=== PATIENT | female | born 1985 | race Caucasian/White ===

== ENCOUNTER 2018-04-02 13:17 | Inpatient (IN) | payer OTHER ==
[~2018-04-02] VITALS: Ht 170.2 cm; Wt 79.4 kg
[2018-04-02] MEDS ORDERED: SODIUM CHLORIDE 0.9% 1,000 ML IVB ONE (14:09)
[2018-04-02] MEDS ORDERED: PROMETHAZINE HCL 25 MG/ML 1ML IV PRN ×2 (14:15→17:15)
[2018-04-02] MEDS ORDERED: HYDROmorphone HCL 2 MG/ML VL IV ONE (14:15)
[2018-04-02] MEDS ORDERED: IOHEXOL 300 MG/ML 100ML BOTTLE IJ ONE (14:17)
[2018-04-02] MEDS ORDERED: cefTRIAXone 1GM/10ml IVPUSH 10 ML IV ONE (15:00)
[2018-04-02] MEDS ORDERED: metroNIDAZOLE 500MG/100ML 100 ML IV ONE (15:00)
[2018-04-02 15:08] LABS: Basophils # (auto) 0 uL; Basophils % (auto) 0.2 % (0.0-2.0); Eosinophils # (auto) 0 uL; Eosinophils % (auto) 0.1 % (0.0-7.0); Lymphocytes # (auto) 0.6 uL; Lymphocytes % (auto) 3.9 % (10.0-50.0); Monocytes # (auto) 0.8 uL; Neutrophils # (auto) 13.6 uL; Red Cell Distribution Width 17.2 % (11.8-14.3)
[2018-04-02 15:10] LABS: Hematocrit 35.2 % (36.0-46.0); Hemoglobin 11.2 g/dL (12.2-16.2); Mean Corpuscular Hemoglobin 23.3 pg (28.0-32.0); Mean Corpuscular Hgb Conc. 31.9 g/dL (32.0-36.0); Monocytes % (auto) 5.3 % (0.0-12.0); Neutrophils % (auto) 90.5 % (37.0-80.0); Platelet Count (auto) 355 10^3/uL (140-450); Red Blood Cells 4.82 10^6/uL (4.0-5.20)
[2018-04-02 15:26] LABS: Potassium 3.4 mmol/L (3.5-5.1)
[2018-04-02 15:55] LABS: Magnesium 1.7 mg/dL (1.6-2.6)
[2018-04-02 16:02] LABS: BUN/Creatinine Ratio 18.9; Bilirubin, Total 0.3 mg/dL (0.2-1.0); Calcium 7.9 mg/dL (8.5-10.1); Total Protein 7.6 g/dL (6.4-8.2)
[2018-04-02] MEDS: SODIUM CHLORIDE 0.9% 1,000 ML IV SCH (17:01)
[2018-04-02] MEDS ORDERED: HYDROmorphone HCL 2 MG/ML VL IV PRN ×2 (17:15)
[2018-04-02] MEDS ORDERED: LABETALOL HCL 5 MG/ML 4ML SYRINGE IV PRN (17:15)
[2018-04-02] MEDS ORDERED: ePHEDrine SULFATE 50 MG/ML AMP IV PRN (17:15)
[2018-04-02] MEDS ORDERED: MIDAZOLAM HCL 1MG/1ML-2 ML VIAL IV PRN (17:15)
[2018-04-02] MEDS ORDERED: NITROGLYCERIN 0.4 MG SL TAB SL PRN (17:15)
[2018-04-02] MEDS ORDERED: KETOROLAC TROMETH 30 MG/ML 1ML VIAL IV ONE (17:15)
[2018-04-02] MEDS ORDERED: LORazepam 2MG/ML-1ML VIAL IV PRN (17:15)
[2018-04-02] MEDS ORDERED: MORPHINE SULFATE 10 MG/ML INJ 1ML SDV IV PRN ×4 (17:15)
[2018-04-02] MEDS ORDERED: MORPHINE SULFATE 8mg/ml INJ SDV IV PRN ×4 (17:15)
[2018-04-02] MEDS ORDERED: ONDANSETRON HCL 4 MG/2 ML VIAL IV ONE (17:15)
[2018-04-02 17:18] LABS: INR 1.03 (0.9-1.15); Partial Thromboplastin Time 25.1 sec (23.78-33.04)
[2018-04-02] MEDS ORDERED: MIDAZOLAM HCL 1MG/1ML-2 ML VIAL ONE (17:54)
[2018-04-02] MEDS ORDERED: MEPERIDINE HCL (50 MG/ML) 1 ML VIAL ONE (17:54)
[2018-04-02] MEDS ORDERED: fentaNYL CITRATE 100 MCG/2 ML VL ONE (17:55)
[2018-04-02] MEDS ORDERED: MORPHINE SULFATE 10 MG/ML INJ 1ML SDV IV ONE (18:00)
[2018-04-02] MEDS ORDERED: ceFAZolin 1GM/100ML 100 ML IV ONE (18:08)
[2018-04-02] MEDS ORDERED: PROPOFOL 10 MG/ML 20 ML IV ONE (18:16)
[2018-04-02] MEDS ORDERED: DEXAMETHASONE SOD PHOS 10MG/1ML VIAL INJ ONE (18:16)
[2018-04-02] MEDS ORDERED: ROCURONIUM 10MG/ML 10ML VIAL IV ONE (18:17)
[2018-04-02] MEDS ORDERED: KETOROLAC TROMETH 30 MG/ML 1ML VIAL ONE (18:42)
[2018-04-02] MEDS ORDERED: GLYCOPYRROLATE 0.2 MG/ML 1ML VIAL ONE (18:42)
[2018-04-02] MEDS ORDERED: NEOSTIGMINE 1 MG/ML INJ (10mg/10ML VIAL) ONE (18:42)
[2018-04-02 20:20] VITALS: BP 116/71
[2018-04-02] MEDS: metroNIDAZOLE 500MG/100ML 100 ML IV SCH ×2 (20:33→23:48)
[2018-04-02 22:00] VITALS: BP 111/71
[2018-04-02] MEDS ORDERED: ONDANSETRON HCL 4 MG/2 ML VIAL IV PRN (22:45)
[2018-04-03 00:09] VITALS: BP 111/71
[2018-04-03] MEDS: SODIUM CHLORIDE 0.9% 1,000 ML IV SCH ×2 (03:01→13:01)
[2018-04-03 05:00] VITALS: BP 98/59
[2018-04-03] MEDS: metroNIDAZOLE 500MG/100ML 100 ML IV SCH ×2 (05:39→12:07)
[2018-04-03 07:33] LABS: Albumin 2.6 g/dL (3.4-5.0); BUN/Creatinine Ratio 14.7; Calcium 8.3 mg/dL (8.5-10.1)
[2018-04-03 07:36] LABS: Bilirubin, Total 0.4 mg/dL (0.2-1.0); Total Protein 7.3 g/dL (6.4-8.2)
[2018-04-03 07:40] LABS: Basophils # (auto) 0 uL; Basophils % (auto) 0.1 % (0.0-2.0); Eosinophils # (auto) 0 uL; Mean Corpuscular Hgb Conc. 31.6 g/dL (32.0-36.0); Monocytes # (auto) 0.2 uL
[2018-04-03 07:44] LABS: Hematocrit 33.3 % (36.0-46.0); Hemoglobin 10.5 g/dL (12.2-16.2); Lymphocytes # (auto) 0.9 uL; Lymphocytes % (auto) 8.4 % (10.0-50.0); Mean Corpuscular Hemoglobin 23.2 pg (28.0-32.0); Mean Corpuscular Volume 73.4 fL (80.0-100.0); Monocytes % (auto) 1.9 % (0.0-12.0); Neutrophils # (auto) 9.7 uL; Neutrophils % (auto) 89.6 % (37.0-80.0); Platelet Count (auto) 367 10^3/uL (140-450); Red Blood Cells 4.53 10^6/uL (4.0-5.20); Red Cell Distribution Width 17.6 % (11.8-14.3); White Blood Cell 10.9 10^3/uL (4.4-10.8)
[2018-04-03 09:00] VITALS: BP 102/55
[2018-04-03] MEDS ORDERED: cefTRIAXone 1GM/10ml IVPUSH 10 ML IV SCH (09:00)
[2018-04-03 12:23] VITALS: BP 111/59
== END 2018-04-03 16:15 | disposition home or self-care (01) | DRG 854 ==
LOC: ER 13:17 → OR 1 18:57 → TELE 19:51 → TELE-EAST 19:56
PROVIDERS: ADMIT Internal Medicine; ATTEND Family Medicine
PROC: 0DTJ4ZZ Resection of Appendix, Percutaneous Endoscopic Approach (ICD-10-PCS; principal; 2018-04-02 18:14)
DX: A41.9 Sepsis, unspecified organism (principal); K35.80 Unspecified acute appendicitis; E44.0 Moderate protein-calorie malnutrition; E87.6 Hypokalemia; K66.0 Peritoneal adhesions (postprocedural) (postinfection); Z82.49 Family history of ischemic heart disease and other diseases of the circulatory system; Z83.3 Family history of diabetes mellitus
CPT/HCPCS: 36415; 71045; 74177; 80053; 83605; 83690; 83735; 84702; 85025; 85610; 85730; 86850; 86900; 86901; 87040; 87081; 96361; 96365; 96375; J0690; J1100; J1885; J2250; J2704; J3490